=== PATIENT | male | born 1935 | race Caucasian/White ===

== ENCOUNTER → 2018-08-30 | Outpatient (CLI) | payer MEDICARE, BC ==
--- NOTE | 2018-08-30 13:05 | PN ---
Date/Time of Note Date/Time of Note DATE: 08/30/18 TIME: 13:01 Assessment/Plan VTE Prophylaxis Pharmacological prophylaxis: other Assessment/Plan Assessment/Plan 83-year-old male with bilateral knee osteoarthritis. His left knee symptomatic. Although the patient remains active and his symptoms are not acute, given the difficulty with routine activities as well as the fact that the knees will worsen with time, surgical treatment with knee replacement would be appropriate. He has tried physical therapy, injections and medications. The knees have been gradually worsening for the past few years. The patient will consider his options and will be scheduled for left knee replacement when he is ready. Medical clearance is will be obtained Subjective 24 Hr Interval Summary Free Text/Dictation Mr. Villaseñor is an 83-year-old male who is here for evaluation of left knee pain. Patient reports mild pain in his knees. He states that he is quite active and is able to walk about 4 miles a day. Lately, his knees have been giving out. He describes a fall and has some difficulty going up and down stairs. He denies any trauma, fever or chills. He is here for further management Additional Comments Past history is significant for hypertension, increased cholesterol. Medications include simvastatin and hydrochlorothiazide, he takes meloxicam for his knee pain Allergies none Review of systems is negative for chest pain or shortness of breath positive for hearing loss and arthritis Exam/Review of Systems Exam Vitals Vital signs are stable blood pressure 150/72, temperature 98.4, respiration 12 and pulse 63 Exam Examination shows a pleasant male, he is awake alert and oriented. He walks without a limp. Patient does have difficulty getting up from a sitting position. Both knees have mild swelling. The right knee has a mild valgus deformity in the left knee has a mild varus deformity. The left knee shows medial joint line tenderness, range of motion 10-105 with crepitus. The right knee has 5-120 degrees of motion. Both knees are stable. There is no neurovascular deficit. X-rays of the knees show advanced osteoarthritis with complete loss of joint space on the medial side of the left knee and lateral side of the right knee. osteophytes are noted as well. SWATHI FIGUEROA Aug 30, 2018 13:05
--- NOTE | 2018-08-31 08:00 | RADRPT ---
PROCEDURE: Bilateral knee series CLINICAL INDICATION: Pain TECHNIQUE: AP weightbearing, lateral weightbearing and sunrise views were obtained of the right lef t knees. COMPARISON: None FINDINGS: Severe degenerate joint disease of both knees worse in the lateral compartment of the right knee wors e involving the medial compartment of the left knee. No acute fractures or dislocations. No focal bon y blastic or lytic lesions. Small suprapatellar right knee joint effusion. No evidence of a left knee joint effusion. Soft tissues otherwise unremarkable. IMPRESSION: 1. Severe degenerate joint disease of both knees without acute fractures or dislocations. 2. Small suprapatellar right knee joint effusion. RPTAT:AAJJ Physician Lila Date Time Electronically viewed and signed by Rosales Carranza Physician on 08/31/2018 08:00 /
== END | disposition home or self-care (01) ==
LOC: HKI 12:50
PROVIDERS: ATTEND Orthopaedic Surgery
DX: M17.0 Bilateral primary osteoarthritis of knee (principal); I10 Essential (primary) hypertension
CPT/HCPCS: 73562; G0463